=== PATIENT | female | born 1985 | race Caucasian/White ===

== ENCOUNTER 2017-12-13 05:52 | Day surgery (SDC) | payer MEDICAID ==
[2017-12-13] VITALS (9 sets, daily range): BP systolic 101–143; BP diastolic 65–90
[~2017-12-13] VITALS: Ht 175.3 cm; Wt 72.6 kg
[~2017-12-13 05:52] MED LIST: NORG1TAB14; PROP10TA10 PO; albuterol 2.5 MG/3 ML nebule NEB ONE; famotidine 20mg tablet PO ONE; ringers solution, lacted 1,000 ML IV SCH
[2017-12-13] MEDS ORDERED: LIDOcaine 1% (10mg/ml) 2ml vial ONE (06:13)
[2017-12-13 07:07] LABS: BASOPHILS # (AUTO) 0.1 X10'3 (0-0.2); EOSINOPHILS # (AUTO) 0.1 X10'3 (0-0.9); LYMPHOCYTES # (AUTO) 3.6 X10'3 (1.1-4.8); LYMPHOCYTES % (AUTO) 49.3 % (21-51); MEAN CORPUSCULAR HEMOGLOBIN 29.3 PG (27.0-31.0); MEAN CORPUSCULAR HGB CONC 33.1 % (33.0-36.5); MEAN CORPUSCULAR VOLUME 88.4 FL (78-98); MEAN PLATELET VOLUME 8.4 FL (7.4-10.4); MONOCYTES # (AUTO) 0.4 X10'3 (0-0.9); MONOCYTES % (AUTO) 5.1 % (2-12); NEUTROPHILS # (AUTO) 3.1 X10'3 (1.8-7.7); NEUTROPHILS % (AUTO) 42.6 % (42-75); PRE OP HEMOGLOBIN 14.9 g/dL (12.0-16.0); PRE OP PLATELET COUNT 319 X10'3 (140-440); RED BLOOD COUNT 5.09 X10'6 (4.20-5.60); RED CELL DISTRIBUTION WIDTH 12.4 % (11.5-14.5)
[2017-12-13] MEDS ORDERED: fentaNYL/PF 50MCG/1 ML 2ML syringe ONE (07:24)
[2017-12-13] MEDS ORDERED: propofol inj 20 ML IV ONE (07:24)
[2017-12-13] MEDS ORDERED: midazolam 2 mg/2 ml injection ONE (07:24)
[2017-12-13] MEDS ORDERED: rocuronium 10mg/ml inj IV ONE (07:24)
[2017-12-13 07:54] LABS: ALANINE AMINOTRANSFERASE 15 U/L (12-78); ALBUMIN 3.4 G/DL (3.4-5.0); ALKALINE PHOSPHATASE 37 IU/L (46-116); ANION GAP 8 (8-16); ASPARTATE AMINO TRANSFERASE 4 U/L (10-37); BILIRUBIN,TOTAL 0.3 MG/DL (0.1-1.0); BLOOD UREA NITROGEN 11 MG/DL (7-18); BUN/CREATININE RATIO 12.6 (6.6-38.0); CALCIUM 8.9 MG/DL (8.5-10.1); CHLORIDE 106 MMOL/L (99-107); CREATININE 0.87 MG/DL (0.40-0.90); GLUCOSE 94 MG/DL (70-104); POTASSIUM 3.5 MMOL/L (3.5-5.1); SODIUM 139 MMOL/L (135-145); TOTAL CARBON DIOXIDE 25.4 MMOL/L (24-32); TOTAL PROTEIN 6.9 G/DL (6.4-8.2); eGFR 76 ML/MIN
[2017-12-13 08:00] LABS: HCG SERUM QL NEGATIVE
[2017-12-13] MEDS ORDERED: ondansetron/PF 4mg/2ml inj IV PRN (08:10)
[2017-12-13] MEDS ORDERED: proCHLORperazine 10 MG/2 ml inj IV PRN (08:10)
[2017-12-13] MEDS ORDERED: meperidine/PF 25mg/ml syringe IV PRN ×3 (08:10)
[2017-12-13] MEDS ORDERED: ringers solution, lacted 1,000 ML IV SCH (08:10)
[2017-12-13] MEDS ORDERED: morphine 4 MG/ML inj SYRINge IV PRN ×2 (08:10)
[2017-12-13] MEDS ORDERED: sevoflurane 250ml liquid IH ONE (08:30)
[2017-12-13] MEDS ORDERED: dexamethasone sod phosphate 4mg/ml inj. ONE (08:37)
[2017-12-13] MEDS ORDERED: ondansetron/PF 4mg/2ml inj ONE (08:37)
[2017-12-13] MEDS ORDERED: neostigmine methylsulfate 1 MG/ML 10ml vial ONE (08:53)
[2017-12-13] MEDS ORDERED: glycopyrrolate 0.2mg/ml inj ONE (08:53)
[2017-12-13] MEDS ORDERED: ibuprofen tablet 400 MG TABLET PO ONE (09:30)
== END 2017-12-13 10:30 | disposition home or self-care (01) ==
LOC: PAS 05:52
PROVIDERS: ATTEND Obstetrics & Gynecology
DX: Z30.2 Encounter for sterilization (principal); F17.210 Nicotine dependence, cigarettes, uncomplicated; K21.9 Gastro-esophageal reflux disease without esophagitis; F41.0 Panic disorder [episodic paroxysmal anxiety]; F41.8 Other specified anxiety disorders; Z88.4 Allergy status to anesthetic agent; Z72.89 Other problems related to lifestyle; Z79.1 Long term (current) use of non-steroidal anti-inflammatories (NSAID); Z79.899 Other long term (current) drug therapy
CPT/HCPCS: 36415; 58670; 80053; 84703; 85025; J1100; J2175; J2250; J2405; J2704; J2710; J3010; J3490; J7120; A7000